=== PATIENT | male | born 1985 | race Caucasian/White ===

== ENCOUNTER 2022-02-11 21:20 | Emergency (ER) | payer BC ==
[2022-02-11] MEDS ORDERED: Ondansetron 4 MG/2 ML SDV IVPUSH ONE (21:55)
[2022-02-11 22:05] LABS: ANION GAP 12.1 mEq/L (7-13); CHLORIDE,CL 103 mmol/L (98-107); SODIUM,NA 141 mmol/L (136-145)
[2022-02-11 22:16] LABS: ESTIMATED GFR 118 mL/min (>=60)
[2022-02-11 22:24] LABS: CORONAVIRUS COVID-19 NAA NEGATIVE (NEGATIVE)
[2022-02-11] MEDS ORDERED: HYDROmorphone 0.5 MG/0.5 ML Syringe IVPUSH ONE (22:31)
== END 2022-02-11 22:46 | disposition home or self-care (01) ==
LOC: DL.ED 21:20
DX: R10.11 Right upper quadrant pain (principal); Z20.822 Contact with and (suspected) exposure to COVID-19
CPT/HCPCS: 0240U; 36415; 71045; 80053; 80307; 82150; 83605; 83690; 84484; 85025; 87040; 93005; 96374; 96375; 99284; J1170; J2405